=== PATIENT | male | born 1995 | race Hispanic/Latino ===

== ENCOUNTER 2022-04-25 17:05 | Emergency (ER) | payer SELFPAY ==
[~2022-04-25] VITALS: Ht 182.9 cm; Wt 117.9 kg
[2022-04-25] MEDS ORDERED: TETRACAINE HCL 0.5% OPTH SOLN 4 ML BTL OP ONE (17:15)
[2022-04-25] MEDS ORDERED: FLUORESCEIN SOD(OPTH) 1 MG STRP OP ONE (17:15)
== END 2022-04-25 17:25 | disposition home or self-care (01) ==
LOC: ER 17:12
DX: T15.91XA Foreign body on external eye, part unspecified, right eye, initial encounter (principal); X58.XXXA Exposure to other specified factors, initial encounter
CPT/HCPCS: 99283

== ENCOUNTER 2024-09-19 22:19 | Emergency (ER) | payer BC ==
[~2024-09-19] VITALS: Ht 180.3 cm; Wt 117.5 kg
[2024-09-19 22:33] VITALS: PULSE 63; RESP 18; TEMP 97.9
[2024-09-19] MEDS ORDERED: PREDNISONE20 MG PO (22:43)
[2024-09-19] MEDS ORDERED: DIPHENHYDRAMINE25 M2 PO (22:43)
[2024-09-19] MEDS: DEXAMETHASONE SOD PHOS INJ 4 MG/ML SDV IM ONE (23:14)
[2024-09-19 23:22] VITALS: BP 130/78; PULSE 63; RESP 18; TEMP 98; O2SAT 100
== END 2024-09-19 23:22 | disposition home or self-care (01) ==
LOC: FSED 22:42
DX: L25.9 Unspecified contact dermatitis, unspecified cause (principal)
CPT/HCPCS: 96372; 99282; J1100